=== PATIENT | male | born 1955 | race Caucasian/White ===

== ENCOUNTER 2017-08-18 09:25 | Day surgery (SDC) | payer MEDICAID, OTHER ==
[2017-08-18] MEDS ORDERED: NS 500 ML IV ONE (09:32)
[2017-08-18] MEDS ORDERED: ATROPINE SULFATE 1 MG/10 ML SYR IVP ONE (09:32)
[2017-08-18] MEDS ORDERED: fentaNYL 100 MCG/2 ML INJ IVP ONE (09:32)
[2017-08-18] MEDS ORDERED: MIDAZOLAM 2 MG/2 ML VIAL IVP ONE (09:32)
[2017-08-18] MEDS ORDERED: BENZOCAINE UNIT DOSE SPRAY HURRICAINE MM ONE (09:32)
--- NOTE | 2017-08-18 09:46 | CPEKG ---
Heart Rate: 117 RR Interval: 513 QRSD Interval: 108 QT Interval: 376 QTC Interval: 525 QRS [place]: 117 T Wave [place]: 30 EKG Severity - ABNORMAL ECG - EKG Impression: A-FLUTTER W/ PREDOM 2:1 AV BLOCK, A-RATE 258 EKG Impression: LEFT POSTERIOR FASCICULAR BLOCK EKG Impression: PROLONGED QT INTERVAL Electronically Signed By: China Raza 18-Aug-2017 16:59:00
[2017-08-18 10:07] LABS: INR 1.47 (0.83-1.16)
--- NOTE | 2017-08-18 10:48 | PDHPUP ---
History & Physical Update H&P update statement: This history and physical update is based on an assessment of the patient which was completed after admission or registration (within 24 hours), but prior to the surgery/procedure. H&P update: H&P reviewed & patient examined, no change in patient's condition since H&P completed
[2017-08-18] MEDS ORDERED: PROPOFOL/EMULSION 500 MG/50 ML BOTTLE IV ONE (10:50)
--- NOTE | 2017-08-18 11:06 | PDTEE1 ---
HEAVENLY Cardioversion Procedure Procedure: electrical cardioversion Indications: atrial fibrillation Consent: signed and in chart Anticoagulation: eliquis Procedural Details: Pads were placed in anterior-posterior position. HEAVENLY probe was advanced and standard images obtained. There is no evidence of left atrial or left atrial appendage thrombus. Synchronized cardioversion attempt #1: 150J Synchronized cardioversion attempt #2: 300J Results: normal sinus rhythm Conclusions: successful HEAVENLY cardioversion Conclusion Comment: The patient maintained NSR for approximately 1 minute then lapsed back to AFIB.
--- NOTE | 2017-08-18 11:07 | PDANEPAE ---
ANE History of Present Illness here for HEAVENLY/CV ANE Past Medical History - Cardiovascular History Hx Hypertension: No Hx Arrhythmias: Yes Hx Chest Pain: No Hx Coronary Artery / Peripheral Vascular Disease: No Hx CHF / Valvular Disease: No Hx Palpitations: No - Pulmonary History Hx COPD: Yes Hx Asthma/Reactive Airway Disease: No Hx Recent Upper Respiratory Infection: No Hx Oxygen in Use at Home: No Hx Sleep Apnea: Yes - Neurologic History Hx Cerebrovascular Accident: No Hx Seizures: No Hx Dementia: No - Endocrine History Hx Diabetes: No Obesity: moderate - Renal History Hx Renal Disorders: No ANE Review of Systems Review of systems is: negative Review of Systems: - Exercise capacity Exercise capacity: >=4 METS ANE Patient History - Allergies Allergies/Adverse Reactions: No Known Allergies Allergy (Unverified 08/18/17 09:32) - Home Medications Home medications: home medication list seen and reviewed Home Medications: Amiodarone HCl 200 mg PO BID 08/18/17 [Last Taken 08/18/17 07:30] Eliquis 5 mg PO BID 08/18/17 [Last Taken 08/18/17 07:30] Lipitor 10 mg (*) 10 mg PO DAILY 08/18/17 [Last Taken 08/18/17 07:30] Metoprolol Tartrate 25 mg PO BID 08/18/17 [Last Taken 08/18/17 07:30] Protonix 40mg (*) 40 mg PO DAILY 08/18/17 [Last Taken 08/18/17 07:30] Spiriva Inhaler (RX) 1 IH DAILY 08/18/17 [Last Taken 08/18/17 07:30] - NPO status NPO Status: no food or drink >8 hours - Anes Hx Anes Hx: no prior problems - Smoking Hx Smoking Status: Former smoker ANE Labs/Vital Signs - Labs Result Diagrams: 08/18/17 09:50 - Vital Signs Vital Signs: reviewed preoperatively; see RN documention for details Height: 185 cm Weight: 126.9 kg ANE Physical Exam - Airway Neck exam: FROM Mallampati Score: Class 1 - Pulmonary Pulmonary: no respiratory distress - Cardiovascular Cardiovascular: irregularly irregular - ASA Status ASA Status: III ANE Anesthesia Plan Anesthesia Plan: GA with mask
--- NOTE | 2017-08-18 11:08 | POSTANESTH ---
Post Anesthetic Evaluation Cardiovascular Status: Normal, Stable Respiratory Status: Normal, Stable Level of Consciousness/Mental Status: Can Participate in Eval Pain Control: Adequate, Prn Tx Ordered Nausea/Vomiting Control: Adequate, Prn Tx Ordered Complications Possibly Related to Anesthesia: None Noted
--- NOTE | 2017-08-18 11:20 | CPEKG ---
Heart Rate: 102 RR Interval: 588 QRSD Interval: 110 QT Interval: 376 QTC Interval: 490 QRS [place]: 116 T Wave [place]: 96 EKG Severity - ABNORMAL ECG - EKG Impression: ATRIAL FIBRILLATION EKG Impression: LEFT POSTERIOR FASCICULAR BLOCK Electronically Signed By: China Raza 18-Aug-2017 16:59:07
[2017-08-18] MEDS ORDERED: PERFLUTREN LIPID MICROSPHERES 1.1 MG/ML VIAL IV ONE (11:38)
--- NOTE | 2017-08-18 15:53 | ECHO ---
[email or web address] [address] [address] Main: [phone] Fax: Transesophageal Echocardiography Name: DARRYN MONTEIRO MR#: [id number] Study Date: 08/18/2017 Study Time: 10:46 AM Date of : 1955 Age: 62 year(s) Height: ( ) Weight: ( ) BSA: Gender: Male Examination: HEAVENLY Indication: Atrial Fibrillation Image Quality: Contrast: Requested by: Clarence Bishop Heart Rate: Rhythm: BP: / Procedure Staff Gas Appliance Mechanic: Yenifer Fenton AUGUSTUS Reading Physician: Clarence Bishop MD Requesting Provider: HEAVENLY Exam Details Conclusions: The patient was in atrial fibrillation at the time of the study. The left ventricle appears to be mildly dilated. The ejection fraction is severely reduced estimated at 25-30% with severe global left ventricular hypokinesis. There are no regional wall motion abnormalities. Severe biatrial enlargement is noted. The interatrial septum appears to be intact on color-flow imaging. Agitated saline contrast study was not performed. The right ventricle appears to be mildly dilated with mild hypokinesis. Valvular anatomy is normal. There is mild mitral and tricuspid regurgitation. No pericardial effusion is noted. Immediately following the procedure a cardioversion was performed. The patient maintained sinus rhythm following a 300 joule shock for about 1 min after which he lapsed back into atrial fibrillation. Measurements: Chambers Valvular Assessment AV/MV Valvular Assessment TV/PV Normal Normal Normal Name Value Range Name Value Range Name Value Range EF Range: 25--30 % Additional Measurements: Findings: The ejection fraction is estimated to be 25--30 %. Left Atrium: Spontaneous contrast seen in JJ and LA.. Patient: DARRYN MONTEIRO Study Date: 08/18/2017 Page 1 of 2 10:46 AM Mitral Valve: The mitral valve is normal in appearance. Mild mitral valve regurgitation is present. Aortic Valve: The aortic valve is tri-leaflet. Tricuspid Valve: The tricuspid valve appears normal. Mild tricuspid regurgitation is present. Exam Comments: Definity microspheres injected to better assess LV function.. l1n (No Signature Object) Patient: DARRYN MONTEIRO Study Date: 08/18/2017 Page 2 of 2 10:46 AM [id number]
== END 2017-08-18 12:49 | disposition home or self-care (01) ==
LOC: FCATH 09:25
PROVIDERS: ATTEND Internal Medicine Cardiovascular Disease
PROC: 5A2204Z Restoration of Cardiac Rhythm, Single (ICD-10-PCS; principal; 2017-08-18)
PROC: B245ZZ4 Ultrasonography of Left Heart, Transesophageal (ICD-10-PCS; principal; 2017-08-18)
DX: I48.91 Unspecified atrial fibrillation (principal); E78.5 Hyperlipidemia, unspecified; E66.9 Obesity, unspecified; Z68.37 Body mass index [BMI] 37.0-37.9, adult; G47.33 Obstructive sleep apnea (adult) (pediatric); Z79.2 Long term (current) use of antibiotics; Z87.891 Personal history of nicotine dependence
CPT/HCPCS: J2704; Q9957

== ENCOUNTER 2017-09-20 14:58 | Inpatient (IN) | payer MEDICAID, OTHER ==
--- NOTE | 2017-09-20 15:19 | CPEKG ---
Heart Rate: 37 RR Interval: 1622 QRSD Interval: 112 QT Interval: 644 QTC Interval: 506 QRS [place]: 113 T Wave [place]: 148 EKG Severity - ABNORMAL ECG - EKG Impression: JUNCTIONAL ESCAPE RHYTHM EKG Impression: LEFT POSTERIOR FASCICULAR BLOCK EKG Impression: MINIMAL ST DEPRESSION, LATERAL LEADS Electronically Signed By: Marcelo Meyer 22-Sep-2017 08:29:20
[2017-09-20 15:26] LABS: PLATELET COUNT 177 10^3/uL (150-400)
[2017-09-20] MEDS ORDERED: ASPIRIN 81 MG CHEWABLE TAB PO ONE (15:29)
[2017-09-20] MEDS ORDERED: NS 500 ML IV ONE (15:29)
--- NOTE | 2017-09-20 15:34 | EDPHY ---
H & P Time Seen by Provider: 09/20/17 15:19 HPI/ROS: CHIEF COMPLAINT: The near syncope, bradycardia HISTORY OF PRESENT ILLNESS: Patient is a 62-year-old male with a history of paroxysmal atrial fibrillation on Eliquis, metoprolol and amiodarone who presents emergency department with bradycardia and hypotension. The patient states that earlier today he had a near syncopal episode while walking in the [employer]. He also reports shortness of breath while walking up stairs. This is been going on for some time. He had an appointment with his drupal programmer today. This is routine checkup. When there he told the drupal programmer about his symptoms. EKG was performed at the drupal programmer office and he was noted to be bradycardic with a heart rate of 38. The drupal programmer stated that this was a junctional rhythm versus atrial fibrillation with slow ventricular response. Patient is unsure about the medications that he is taking. Apprentice Architect recommend the patient be admitted. At this time patient has no complaints. No chest pain or shortness of breath. He is not lightheaded or dizzy. REVIEW OF SYSTEMS: My complete review of systems is negative except as mentioned in the HPI. Past Medical/Surgical History: Includes atrial fibrillation, hypertension, high cholesterol Social History: The patient does not smoke. Smoking Status: Former smoker Physical Exam: Vitals noted. Normal pressure. Bradycardic. GENERAL: No acute distress, alert. HEENT: Eyes normal to inspection, normal pharynx, no signs of dehydration. NECK: No thyromegaly, no lymphadenopathy, supple. RESPIRATORY: Clear to auscultation bilaterally, no rales, rhonchi or wheezing. CVS: Bradycardia with regular rhythm, no rubs, murmurs, or gallops. ABDOMEN: Soft, nontender, nondistended, no organomegaly. BACK: Normal to inspection, no CVA tenderness. SKIN: Normal color, no rash, warm, dry. No pallor. EXTREMITIES: No pedal edema, no calf tenderness, no Homans sign or cords, no joint swelling. NEURO/PSYCH: Alert and oriented x3, normal mood and affect, normal motor sensory exam. No obvious cranial nerve deficit. Constitutional: Initial Vital Signs Temperature (C) 36.5 C 09/20/17 15:25 Heart Rate 38 L 09/20/17 15:25 Respiratory Rate 14 09/20/17 15:25 Blood Pressure 137/77 H 09/20/17 15:25 O2 Sat (%) 93 09/20/17 15:25 O2 Delivery Mode Room Air O2 (L/minute) 2 Allergies/Adverse Reactions: No Known Allergies Allergy (Verified 09/20/17 15:23) Home Medications: Medication Instructions Recorded Amiodarone HCl 200 mg PO BID 08/18/17 Lipitor 10 mg (*) 10 mg PO DAILY 08/18/17 Metoprolol Tartrate 25 mg PO BID 08/18/17 Protonix 40mg (*) 40 mg PO DAILY 08/18/17 Spiriva Inhaler (RX) 1 IH DAILY 08/18/17 Pradaxa 09/20/17 Medical Decision Making ED Course/Re-evaluation: In the emergency department I discussed possible etiologies with the patient. I answered all his questions. IV was placed. Laboratory studies were obtained. Patient was given normal saline 500 mL IV for hydration. This was due to his reported low blood pressure. Patient was given aspirin 324 mg orally. EKG was ordered. EKG: Junctional escape rhythm at 37. Normal axis. Left posterior fascicular block. Patient's CBC was normal. 15 50: I discussed case with the hospitalist service, Dr. Galvan. Patient will be transferred to the [facility] [facility]. The patient agrees. I discussed the plan and answered all his questions. EMTALA completed. Ambulance notitified for transfer. Consult requested by cardiology. Differential Diagnosis: My differential includes but is not limited to bradycardia, atrial fibrillation , junctional rhythm, medication overdose, ACS, acute TX, electrolyte abnormality - Data Points Laboratory Results: Laboratory Results 09/20/17 15:20 09/20/17 15:20 09/20/17 09/20/17 15:20 15:20 WBC 7.51 10^3/uL 10^3/uL (3.80-9.50) RBC 4.97 10^6/uL 10^6/uL (4.40-6.38) Hgb 14.9 g/dL g/dL (13.7-17.5) Hct 44.0 % % (40.0-51.0) MCV 88.5 fL fL (81.5-99.8) MCH 30.0 pg pg (27.9-34.1) MCHC 33.9 g/dL g/dL (32.4-36.7) RDW 13.5 % % (11.5-15.2) Plt Count 177 10^3/uL 10^3/uL (150-400) MPV 10.1 fL fL (8.7-11.7) Neut % (Auto) 72.0 % % (39.3-74.2) Lymph % (Auto) 18.9 % % (15.0-45.0) [place] % (Auto) 6.0 % % (4.5-13.0) Eos % (Auto) 1.6 % % (0.6-7.6) Baso % (Auto) 0.7 % % (0.3-1.7) Nucleat RBC Rel Count 0.0 % % (0.0-0.2) Absolute Neuts (auto) 5.41 10^3/uL 10^3/uL (1.70-6.50) Absolute Lymphs (auto) 1.42 10^3/uL 10^3/uL (1.00-3.00) Absolute Monos (auto) 0.45 10^3/uL 10^3/uL (0.30-0.80) Absolute Eos (auto) 0.12 10^3/uL 10^3/uL (0.03-0.40) Absolute Basos (auto) 0.05 10^3/uL 10^3/uL (0.02-0.10) Absolute Nucleated RBC 0.00 10^3/uL 10^3/uL (0-0.01) Immature Gran % 0.8 % % (0.0-1.1) Immature Gran # 0.06 10^3/uL 10^3/uL (0.00-0.10) Sodium 139 mEq/L mEq/L (135-145) Potassium 4.7 mEq/L mEq/L (3.3-5.0) Chloride 105 mEq/L mEq/L (97-110) Carbon Dioxide 26 mEq/l mEq/l (22-31) Anion Gap 8 mEq/L mEq/L (8-16) BUN 19 mg/dL mg/dL (7-23) Creatinine 1.2 mg/dL mg/dL (0.7-1.3) Estimated GFR > 60 Glucose 86 mg/dL mg/dL (70-100) Calcium 8.8 mg/dL mg/dL (8.5-10.4) Total Bilirubin 0.8 mg/dL mg/dL (0.1-1.4) AST 87 IU/L H IU/L (17-59) ALT 170 IU/L H IU/L (21-72) Alkaline Phosphatase 89 IU/L IU/L (38-126) Troponin I 0.019 ng/mL ng/mL (0.000-0.034) Total Protein 6.6 g/dL g/dL (6.3-8.2) Albumin 3.5 g/dL g/dL (3.5-5.0) Medications Given: Sodium Chloride (Ns) 500 mls @ 1,000 mls/hr IV EDNOW ONE PRN Reason: Protocol Stop: 09/20/17 15:58 Last Admin: 09/20/17 15:40 Dose: 500 mls Discontinued Medications Aspirin (Aspirin) 324 mg PO EDNOW ONE Stop: 09/20/17 15:30 Last Admin: 09/20/17 15:40 Dose: 324 mg Departure - Departure Disposition: [facility] Inpatient Acute Clinical Impression: Near syncope, Bradycardia Condition: Good Referrals: Sal Dean MD [Primary Care Provider] - As per Instructions
[2017-09-20] MEDS ORDERED: ACETAMINOPHEN 325 MG TAB PO PRN (15:53)
[2017-09-20] MEDS ORDERED: NS 1,000 ML IV SCH (16:00)
[2017-09-20 16:03] LABS: INR 1.34 (0.83-1.16); PROTIME(PATIENT) 16.4 SEC (12.0-15.0)
--- NOTE | 2017-09-20 18:57 | PDGENHP ---
History and Physical - Chief Complaint Acute near syncope - History of Present Illness Primary care provider: Dr. Pocne Primary retail department reset: Dr. Sal Dean HPI: 62-year-old male presents with acute near syncope characterized as sudden onset dizziness of 1-2 minute duration with associated shortness of breath. The symptoms occurred while the patient was very minimally exerting himself, and ambulating through the [employer]. Alleviated by rest and he experienced a 2nd episode of symptoms on the day of this presentation. He sought medical attention at [facility], reportedly had notable bradycardia and hypotension, and was referred to urgent care. He reports that over the past 1 month, he has been experiencing shortness of breath which is exacerbated by ambulating up stairs and he has been experiencing some chest heaviness while supine. He has undergone a sleep study and he believes that the results indicated he has obstructive sleep apnea. He otherwise denies any exertional chest pain and he denies any symptomatic atrial fibrillation. He has been taking all of his home medications which include anticoagulant, metoprolol, amiodarone, and reports that he has recently had a dose adjustment, but he is unclear which medication was adjusted. History Information - Allergies/Home Medication List Allergies/Adverse Reactions: No Known Allergies Allergy (Verified 09/20/17 15:23) Home Medications: Amiodarone HCl 200 mg PO BID 08/18/17 [Last Taken 08/18/17 07:30] Lipitor 10 mg (*) 10 mg PO DAILY 08/18/17 [Last Taken 08/18/17 07:30] Metoprolol Tartrate 25 mg PO BID 08/18/17 [Last Taken 08/18/17 07:30] Protonix 40mg (*) 40 mg PO DAILY 08/18/17 [Last Taken 08/18/17 07:30] Spiriva Inhaler (RX) 1 IH DAILY 08/18/17 [Last Taken 08/18/17 07:30] Pradaxa 09/20/17 [Last Taken Unknown] I have personally reviewed and updated: family history, medical history, social history, surgical history - Past Medical History atrial fibrillation (Persistent, currently on mayda blocking and antiarrhythmic therapy) Additional medical history: Suspected obstructive sleep apnea - Surgical History Reports: no pertinent surgical hx - Family History Additional family history: No recent sick family contacts - Social History Smoking Status: Former smoker Alcohol Use: Rarely Drug Use: None Additional social history: 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 Review of Systems Review of Systems: ROS: 10pt was reviewed & negative except for what was stated in HPI & below Respiratory: Reports: shortness of breath Neurological: Reports: other (Dizziness) Physical Exam Physical Exam: Temp Pulse Resp BP Pulse Ox 36.6 C 38 L 12 161/93 H 100 09/20/17 17:58 09/20/17 18:22 09/20/17 17:58 09/20/17 18:22 09/20/17 17:58 O2 (L/minute) 2 Constitutional: no apparent distress, appears nourished, not in pain Eyes: PERRL, anicteric sclera, EOMI Ears, Nose, Mouth, Throat: moist mucous membranes, hearing normal, ears appear normal, no oral mucosal ulcers Cardiovascular: bradycardia, No systolic murmur, No irregularly irregular, No tachycardia, No edema Respiratory: no respiratory distress, no rales or rhonchi, clear to auscultation Gastrointestinal: normoactive bowel sounds, soft, non-tender abdomen, no palpable masses Skin: warm, No abrasion, No rash Neurologic: AAOx3, sensation intact bilaterally, No weakness (Motor 5/5 bilateral lower extremities) Psychiatric: interacting appropriately, not anxious, not encephalopathic, thought process linear, other (Charismatic) Lab Data & Imaging Review 09/20/17 15:20 09/20/17 15:20 WBC 7.51 10^3/uL (3.80-9.50) 09/20/17 15:20 RBC 4.97 10^6/uL (4.40-6.38) 09/20/17 15:20 Hgb 14.9 g/dL (13.7-17.5) 09/20/17 15:20 Hct 44.0 % (40.0-51.0) 09/20/17 15:20 MCV 88.5 fL (81.5-99.8) 09/20/17 15:20 MCH 30.0 pg (27.9-34.1) 09/20/17 15:20 MCHC 33.9 g/dL (32.4-36.7) 09/20/17 15:20 RDW 13.5 % (11.5-15.2) 09/20/17 15:20 Plt Count 177 10^3/uL (150-400) 09/20/17 15:20 MPV 10.1 fL (8.7-11.7) 09/20/17 15:20 Neut % (Auto) 72.0 % (39.3-74.2) 09/20/17 15:20 Lymph % (Auto) 18.9 % (15.0-45.0) 09/20/17 15:20 [place] % (Auto) 6.0 % (4.5-13.0) 09/20/17 15:20 Eos % (Auto) 1.6 % (0.6-7.6) 09/20/17 15:20 Baso % (Auto) 0.7 % (0.3-1.7) 09/20/17 15:20 Nucleat RBC Rel Count 0.0 % (0.0-0.2) 09/20/17 15:20 Absolute Neuts (auto) 5.41 10^3/uL (1.70-6.50) 09/20/17 15:20 Absolute Lymphs (auto) 1.42 10^3/uL (1.00-3.00) 09/20/17 15:20 Absolute Monos (auto) 0.45 10^3/uL (0.30-0.80) 09/20/17 15:20 Absolute Eos (auto) 0.12 10^3/uL (0.03-0.40) 09/20/17 15:20 Absolute Basos (auto) 0.05 10^3/uL (0.02-0.10) 09/20/17 15:20 Absolute Nucleated RBC 0.00 10^3/uL (0-0.01) 09/20/17 15:20 Immature Gran % 0.8 % (0.0-1.1) 09/20/17 15:20 Immature Gran # 0.06 10^3/uL (0.00-0.10) 09/20/17 15:20 PT 16.4 SEC (12.0-15.0) H 09/20/17 Unknown INR 1.34 (0.83-1.16) H 09/20/17 Unknown APTT 44.2 SEC (23.0-38.0) H 09/20/17 Unknown Sodium 139 mEq/L (135-145) 09/20/17 15:20 Potassium 4.7 mEq/L (3.3-5.0) 09/20/17 15:20 Chloride 105 mEq/L (97-110) 09/20/17 15:20 Carbon Dioxide 26 mEq/l (22-31) 09/20/17 15:20 Anion Gap 8 mEq/L (8-16) 09/20/17 15:20 BUN 19 mg/dL (7-23) 09/20/17 15:20 Creatinine 1.2 mg/dL (0.7-1.3) 09/20/17 15:20 Estimated GFR > 60 09/20/17 15:20 Glucose 86 mg/dL (70-100) 09/20/17 15:20 Calcium 8.8 mg/dL (8.5-10.4) 09/20/17 15:20 Total Bilirubin 0.8 mg/dL (0.1-1.4) 09/20/17 15:20 AST 87 IU/L (17-59) H 09/20/17 15:20 ALT 170 IU/L (21-72) H 09/20/17 15:20 Alkaline Phosphatase 89 IU/L (38-126) 09/20/17 15:20 Troponin I 0.019 ng/mL (0.000-0.034) 09/20/17 15:20 Total Protein 6.6 g/dL (6.3-8.2) 09/20/17 15:20 Albumin 3.5 g/dL (3.5-5.0) 09/20/17 15:20 Visualized and Interpreted Chest x-ray results: Yes Chest X-Ray results: no infiltrate Visualized and Interpreted EKG results: Yes EKG additional interpertation: Junctional bradycardia with T-wave inversions in leads V4 through V6, left posterior fascicular block Assessment & Plan Assessment: 62-year-old male presenting with acute near syncope in the setting of symptomatic bradycardia and persistent atrial fibrillation Plan: 1. Bradycardia. Acute, new problem this provider, further workup indicated. Junctional, most likely secondary to mayda blocking agent plus antiarrhythmic -hold both medications, monitor rate and rhythm on telemetry -currently does not have any evidence of hypotension and does not require temporary pacer -although he was hypotensive at [facility], currently normotensive, continue on normal saline -discussed with Dr. Mindi Rob, he reports that he will consult with Cardiology and I have requested that they consult on this patient tomorrow a.m. To help determine whether the patient will require pacemaker -keep NPO overnight 2. Persistent atrial fibrillation. Resulting in systemic anticoagulation, mayda blocking agent, antiarrhythmic -currently holding metoprolol and amio, continue systemic anticoagulation once reconciled -obtain outside records from [facility] including most recent echo and stress test -reviewed outside records including 08/18/[address] Clarence Bishop recounting the patient underwent transesophageal echocardiogram with DC cardioversion, was in normal sinus rhythm for approximately 1 min, then converted back to atrial fibrillation, EKG at that time demonstrated AFib with left posterior fascicular block and a heart rate of 102 -the patient may require permanent pacemaker for sick sinus syndrome, depending on heart rate and rhythm overnight 3. Transaminitis. Most likely secondary to hepatic steatosis, defer to outpatient management and follow-up liver panel Diet. Regular, NPO after midnight prophylaxis. Currently on systemic anticoagulation Code. Full Disposition. Anticipated discharge is 09/21, pending stabilization of conditions outlined above, patient requires permanent pacemaker placement for unstable rhythm, he will need to be upgraded to inpatient admission status
[2017-09-21] MEDS: DABIGATRAN ETEXILATE MESYL 150 MG CAP PO SCH ×2 (00:40→10:09)
[2017-09-21] MEDS: ATORVASTATIN CALCIUM 10 MG TAB PO SCH (07:55)
[2017-09-21] MEDS: PANTOPRAZOLE SODIUM 40 MG TAB PO SCH (07:55)
[2017-09-21] MEDS ORDERED: PNEUMOCOCCAL 0.5ML VACCINE VIAL IM ONE (08:01)
--- NOTE | 2017-09-21 08:50 | CPEKG ---
Heart Rate: 38 RR Interval: 1579 P-R Interval: 192 QRSD Interval: 116 QT Interval: 672 QTC Interval: 535 P [place]: 19 QRS [place]: 100 T Wave [place]: 102 EKG Severity - ABNORMAL ECG - EKG Impression: SINUS BRADYCARDIA EKG Impression: NONSPECIFIC INTRAVENTRICULAR CONDUCTION DELAY Electronically Signed By: Bassam Golden 21-Sep-2017 11:12:47
[2017-09-21] MEDS: TIOTROPIUM INHALER 18 MCG/DOSE 5 DOSE/MDI IH SCH (08:59)
[2017-09-21] MEDS ORDERED: PROTONIX 40 MG PO SCH (09:00)
[2017-09-21] MEDS ORDERED: LIPITOR 10 MG PO SCH (09:00)
--- NOTE | 2017-09-21 10:45 | HOSPPROG ---
Hospitalist Progress Note Assessment/Plan: 62-year-old man with a history of AFib presents with near syncope. He was found to be bradycardic. # symptomatic bradycardia, appreciate Cardiology consult this is likely secondary to sick sinus syndrome * Pacemaker placement # atrial fibrillation on amiodarone and Pradaxa for anticoagulation. Last dose was last night. They plan on doing pacemaker this afternoon # COPD on Spiriva # GERD on Protonix HPI: 62-year-old male presents with acute near syncope characterized as sudden onset dizziness of 1-2 minute duration with associated shortness of breath. The symptoms occurred while the patient was very minimally exerting himself, and ambulating through the [employer]. Alleviated by rest and he experienced a 2nd episode of symptoms on the day of this presentation. He sought medical attention at [facility], reportedly had notable bradycardia and hypotension, and was referred to urgent care. He reports that over the past 1 month, he has been experiencing shortness of breath which is exacerbated by ambulating up stairs and he has been experiencing some chest heaviness while supine. He has undergone a sleep study and he believes that the results indicated he has obstructive sleep apnea. He otherwise denies any exertional chest pain and he denies any symptomatic atrial fibrillation. He has been taking all of his home medications which include anticoagulant, metoprolol, amiodarone, and reports that he has recently had a dose adjustment, but he is unclear which medication was adjusted. History Information - Allergies/Home Medication List Allergies/Adverse Reactions: No Known Allergies Allergy (Verified 09/20/17 15:23) Home Medications: Amiodarone HCl 200 mg PO BID 08/18/17 [Last Taken 08/18/17 07:30] Lipitor 10 mg (*) 10 mg PO DAILY 08/18/17 [Last Taken 08/18/17 07:30] Metoprolol Tartrate 25 mg PO BID 08/18/17 [Last Taken 08/18/17 07:30] Protonix 40mg (*) 40 mg PO DAILY 08/18/17 [Last Taken 08/18/17 07:30] Spiriva Inhaler (RX) 1 IH DAILY 08/18/17 [Last Taken 08/18/17 07:30] Pradaxa 09/20/17 [Last Taken Unknown] I have personally reviewed and updated: family history, medical history, social history, surgical history - Past Medical History atrial fibrillation (Persistent, currently on mayda blocking and antiarrhythmic therapy) Additional medical history: Suspected obstructive sleep apnea - Surgical History Subjective: Patient new to me and chart reviewed, discussed with Dr. Dai. Feeling good no further syncopal episodes Objective: Vital Signs Temp Pulse Resp BP Pulse Ox 36.6 C 38 L 18 155/79 H 94 09/21/17 03:24 09/21/17 03:24 09/21/17 09:03 09/21/17 03:24 09/21/17 08:03 Laboratory Results 09/21/17 03:16 09/20/17 09/21/17 09/22/17 05:59 05:59 05:59 Intake Total 1490 Output Total 520 Balance 970 PT 16.4 SEC (12.0-15.0) H 09/20/17 Unknown INR 1.34 (0.83-1.16) H 09/20/17 Unknown - Physical Exam Constitutional: no apparent distress, not in pain, obese Eyes: PERRL, anicteric sclera, EOMI Ears, Nose, Mouth, Throat: moist mucous membranes, hearing normal Cardiovascular: regular rate and rhythym Respiratory: no respiratory distress, no rales or rhonchi Gastrointestinal: normoactive bowel sounds, soft, non-tender abdomen Genitourinary: no bladder fullness Skin: normal color Neurologic: AAOx3 Psychiatric: interacting appropriately, not anxious ICD10 Worksheet Patient Problems: Problems Problem Status Onset Near syncope Acute Bradycardia Acute
--- NOTE | 2017-09-21 11:49 | GCON ---
[f rep st] CONSULTATION HISTORY: The patient is admitted to the hospital with a low heart rate. Patient has been in the hospital since last night. He saw his retort kiln burner, Dr. Dean, yesterday and Dr. Dean brought him to the emergency room [facility] se he had a junctional escape rhythm in the 37, 35, 40 range. The patient was lightheaded and dizzy. He had multiple spells of being very lightheaded in the last several days. Sometimes, when he is s itting down and stands up, that when notices the lightheadedness the most. He has also been lethargi c. He has not had the energy he normally has. He has had no syncope. He has not had near syncope. He has had no visual or cranial nerve changes. He has not had any trauma to the head, neck, or chest. He has not had headache, stiff neck, sore throat photophobia. He has not had fever, chills, or cough. He has no rash, arthralgias or hot swollen joints. He has no chest pain, chest tightness, jaw pain, arm pain. He has no pleuritic chest pain. He has no cough, orthopnea, PND or dyspnea on exertion. He has no hemoptysis. He has not had dysuria or frequency. He has no history of rheumatic disease, claudication or cerebrovascular disease. No history of deep v enous thrombosis or pulmonary embolic disease in the past. He has not been a smoker. He was having trouble walking about a month ago up stairs and noted shortness of breath then. He was found to have atrial fibrillation with a rapid ventricular response. He was put on some medications for that and one time back then he had an episode where he felt like an elephant was sitting on his c hest. That was when his heart rate was going very fast and he was short of breath. That has not rec urred since that time. He was seen by Dr. Wright, his primary care doctor, then referred to Cardiology and was seen and ca rdioverted by Dr. Miguel Bishop and has had followup with Dr. Dean. He has no other new complaints exc ept this lightheadedness, this feeling woozy when he changes position and the lethargy that he has velarde d recently. His medicine compliance has not been the best. He has stopped taking his Eliquis on multiple occasio ns it sounds like. He has stopped taking recently the beta blockers and the amiodarone. I talked to Dr. Dean who has been decreasing his medications and the patient said his doses have been getting lower and lower. CARDIAC RISK FACTORS: Positive for diabetes mellitus, for hyperlipidemia, for obesity. Cardiac risk factors are negative for hypertension, smoking, hyperuricemia, family history of prematu re coronary disease or any known coronary artery disease. REVIEW OF SYSTEMS: A 10-point review of systems negative except as noted in the chart and the record that is already attached. MEDICATIONS: Have been atorvastatin, dabigatran, Protonix, Spiriva, aspirin. ALLERGIES: None. SOCIAL HISTORY: He was born in [place], [place], went to high school there. He came out to [facility] in 1979 because his brother moved here and he moved here at that time and stayed ever since. 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 He also covers [place] . 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 He lives by himself. He has no children a nd does nothing for exercise. He does do a 10 minute walk at the end of his day to make sure all the garage doors are close to where the [employer] [address] are and he has no symptoms doing that. He does not smoke. He does not drink significant amounts of alcohol. FAMILY HISTORY: No family history of premature coronary artery disease. No history of unexplained s udden at a young age. PHYSICAL EXAMINATION: VITAL SIGNS: Blood pressure is 135/79, his heart rate is 37, but he feels bet ter now than he did yesterday. He is afebrile. HEENT: Pupils equal and reactive. Mucous membranes a nd mouth moist. NECK: Supple. CARDIOVASCULAR: S1, S2. Very slow heart rate. No S3, S4. No rubs . Soft systolic murmur at left sternal border. LUNGS: Reveal rhonchi bilaterally. No rales, wheezi ng, or dullness. ABDOMEN: Soft, nontender, without masses. He is obese. EXTREMITIES: No edema in flammation or ulceration. NEUROLOGIC: Cranial nerves 2-12 grossly normal. Motor and sensory intact . PSYCHIATRIC: No obvious anxiety or depression. SKIN: Age-related changes. LAB DATA: White count 7.5, hematocrit 44, platelets 177. Sodium 142, potassium 4.6, chloride 108, C O2 27, BUN 18, creatinine 1.1, ALT is 130, AST is 51, alkaline phos is normal. TSH is 3.9. EKG is junctional rhythm. Chest x-ray shows nothing acute ASSESSMENT AND PLAN: 1. Sick sinus syndrome. 2. Atrial fibrillation with rapid ventricular response. 3. Dizziness. 4. Diabetes mellitus. 5. Hyperlipidemia. The patient currently has sick sinus syndrome that he is symptomatic from. To begin at the beginning , about 5 weeks ago he was found to have atrial fibrillation with a rapid ventricular response, came to the [facility] and had a cardioversion and he was cardioverted twice. He was cardio verted successfully to sinus rhythm on the second attempt, but within a minute or so, went back into atrial fibrillation, he was put on amiodarone, full anticoagulation and then metoprolol because his r ate was high. Over the course of the last 5 weeks, he has been evaluated carefully. He had a nuclea r stress test done as an outpatient on 09/17/2016. The nuclear images were negative. He went 8 chacha edwin and 15 seconds on the Joseph protocol. He had [address]-segment depression. His ejec tion fraction was normal on the nuclear imaging study. The patient had no chest pain during that pro cedure. I have not been able to find a regular echocardiographic study on the patient, so we will order one o f those. The transesophageal echocardiogram that was done did not show any significant abnormalities . The patient now has not been taking his beta unruly and, over the last 3 weeks, Dr. Dean tells me he has been decreasing his beta unruly and decreasing his amiodarone dose because the patient was velarde ving slow heart rates. The patient now, and he tells me he has for 3 days not had beta blockers, sti ll comes in with a rhythm of 37, 36, 38 with junctional escape and with symptoms. He feels lighthead ed. He can't do his work. He has felt very lightheaded on several occasions. This would meet the criteria for symptomatic sick sinus syndrome. He has not been overdosed on block ing agents. He will need blocking agents because of his history of atrial fibrillation and I will di scuss this case with Dr. Vuong of the pacemaker service and recommend at this point that the patient proceed to pacemaker therapy. Patient is willing to do this. I have reviewed with him the risks and the options and I think it is a very good approach for him. We will plan to that if he has not had any further anticoagulation today and, from what he tells me a nd what the nursing staff says, he has not had any further anticoagulation today. I will be talking to Dr. Vuong. If we are concerned about anticoagulation and the patient needs to wait another day for the pacemaker , that will be how it flows. Once he has a pacemaker that is functioning, I think we can put him back on metoprolol at a low dose and see, over time, how he does. I have discussed amiodarone with the patient and with Dr. Dean and Dr. Dean and I both agree that he is not a good candidate for long-term amiodarone therapy. He is having a very hard time with com pliance. He is taking too much medicine sometimes and then not enough and now he isn't taking any, b ut he is still having this rhythm. So, we will switch him to a rate control approach for now until he is at least had a documented month of no loss of anticoagulation. At that point in time, Dr. Dean may decide to try further with ano ther attempt at cardioversion. The patient definitely tells me he has been missing his anticoagulation medications. He does not have a good understanding of this and I have gone over this with he and the nurse and the nurse and I both will try to keep reinforcing how important anticoagulation is. The patient has been seen by the Sleep Study service to evaluate him for possible sleep apnea issues that could be contributing to his atrial arrhythmias. He has had a consultation and he is lined up f or further evaluation in that regard. His thyroid function tests have been normal. He needs to lose weight and he has significant cardiac risk factors and we talked about prevention tr mendez to get him going with exercise. All his questions have been answered. I have discussed his case with the hospitalist and the nursing staff. /[id number]/MODL
[2017-09-21] MEDS ORDERED: NS 1,000 ML IV ONE (13:46)
[2017-09-21] MEDS ORDERED: BACITRACIN IRRIGATION/NS 50,000 UNITS/1,000 ML BTL IRR ONE (13:46)
[2017-09-21] MEDS ORDERED: DIAZEPAM 5 MG TAB PO ONE ×2 (14:17→15:23)
[2017-09-21] MEDS ORDERED: TEMAZEPAM 15 MG CAP PO PRN (14:17)
[2017-09-21] MEDS ORDERED: NITROGLYCERIN 0.4 MG BTL SL PRN (14:17)
[2017-09-21] MEDS ORDERED: diphenhydrAMINE 25 MG CAP PO ONE ×2 (14:17→15:23)
[2017-09-21] MEDS ORDERED: FAMOTIDINE 20 MG TAB PO ONE (14:17)
--- NOTE | 2017-09-21 14:26 | PDPROPOC ---
Sedation Plan of Care Sedation Plan of Care: vital signs stable, mental status noted, patient educated of risks, benefits, alternatives, patient can tolerate sedation ASA Classification: ASA 3 Planned drugs: fentanyl, midazolam Mallampati Score: Class 3 Mallampati Reference Image: Patient passed 3-3-2 rule?: No
--- NOTE | 2017-09-21 14:27 | PDHPUP ---
History & Physical Update H&P update statement: This history and physical update is based on an assessment of the patient which was completed after admission or registration (within 24 hours), but prior to the surgery/procedure. H&P update: H&P reviewed & patient examined (patient has intermittent angina at rest and CCS Class IV angina and NYHA class III sob), no change in patient's condition since H&P completed
[2017-09-21] MEDS ORDERED: LIDOCAINE 1% 300 MG/30 ML SDV ONE ×2 (15:16→15:26)
[2017-09-21] MEDS ORDERED: VERAPAMIL 5 MG/2 ML VIAL ONE (15:17)
[2017-09-21] MEDS ORDERED: fentaNYL 100 MCG/2 ML INJ ONE (15:17)
[2017-09-21] MEDS ORDERED: MIDAZOLAM 2 MG/2 ML VIAL ONE ×3 (15:17→15:26)
[2017-09-21] MEDS ORDERED: HEPARIN 10,000 UNIT/10 ML MDV (1,000 UNIT/ML) ONE (15:17)
[2017-09-21] MEDS ORDERED: IOPAMIDOL (ISOVUE-370) 150 ML BTL IV ONE (15:17)
[2017-09-21] MEDS ORDERED: ceFAZolin 2 GM/SWFI 2 GM/20 ML SYR IVP ONE (15:23)
[2017-09-21] MEDS ORDERED: IOPAMIDOL (ISOVUE-300) 50 ML VIAL ONE (15:25)
[2017-09-21] MEDS ORDERED: LIDO/EPI 1% **for epidural** 30 ML SDV ONE (15:26)
[2017-09-21] MEDS ORDERED: BUPIVACAINE 0.5% 30 ML SDV ONE (15:26)
--- NOTE | 2017-09-21 16:09 | PDDXCAT ---
Diagnostic Cath Note - . Date: 09/21/17 Shoe Caser: Carolann (CCC Class IV angina) - Procedure Access: left wrist Procedure: left heart catheterization, coronary angiography, left ventriculogram - Materials Left Heart Cath size: 5F Left Heart Cath materials: standard multipack (JL4, JR4, pigtail) - Findings-Left Heart Catheterization LM: The LM is 5mm in size. It trifurcates into an LAD, Ramus, and Circumflex system. LAD: LAD is 3 mm in size. It has a 2mm major diagonal. The LAD is a relatively small vessel after the diagonal takeoff. LCX: The LCX is 2 mm in size. VERONIKA III flow. No flow limiting obstruction. RCA: The RCA is dominant. It is 3.5 mm in size. VERONIKA III flow, but sluggish flow secondary to bradycardia. Ramus: The ramus intermedius is 2.5 mm in size. It is free of flow limiting obstruction. EDP: LVEDP 23 mmHg. LVEF: EF of 60%. No segmental wall motion abnormalities. Wall motion: On the LV gram there is normal LV systolic function. The EF is 60% . There are no resting segmental wall motion abnormalities. The visualized portion of the thoracic aortic valce reveals three sinuses of valsalva most consistent with a trileaflet valve. There is no gradient on pullback across the aortic valve. There is no evidence of ana dissection or aneurysm formation. Complications: NONE. Estimated blood loss: <50ml Closure method: TR Band Assessment: The patient has [place] vessel coronary disease with no evidence of obstruction, thrombus, or dissection. The RCA is dominant. Plan: The patient has non-flow limiting coronary disease that should be treated medically to achieve a non-HDL Cholesterol of less than 100 mg/dL and anti platelet therapy with ASA is also recommended specifically a dose of 162 mg per day. His BP also needs to be controlled for a goal systolic pressure of less than 130 mmHg. The patient is having junctional escape rhythm and bradycardia. He will proceed to have a pacemaker implanted. There is no evidence of flow limiting obstruction. Intervention: NONE. Patient Problems: Problems Problem Status Onset Bradycardia Acute Near syncope Acute
--- NOTE | 2017-09-21 16:46 | PDMN ---
Medical Necessity Medical necessity: Change to IP, as of 09/21/17, per MD; los >2 mn for ongoing management of symptomatic bradycardia likely secondary to sick sinus syndrome; admit for further monitoring, Cardiology consult & pacemaker placement; hx AFIB & COPD; per progress note & order 09/21/17
--- NOTE | 2017-09-21 16:50 | EPPROC ---
Electrophysiology Procedure Note: PROCEDURE: MRI conditional dual-chamber pacemaker insertion. DATE OF PROCEDURE: 09/21/2017. DEVICE: Implanted is an Edora 8 GEOVANNY [id number], serial # [id number]. MRI conditional device. LEADS: The atrial lead is a Solia S 53, serial # [id number]. The ventricular lead is a Solia S 60, serial # [id number]. COMPLICATIONS: None PAYROLL MANAGER: Reilly Vuong MD INDICATION AND APPROPRIATE USE CRITERIA: The patient was having junctional escape rhythm with bradycardia. Symptomatic SSS. PROCEDURE IN DETAIL: After informed consent was obtained and n.p.o. status was confirmed, the region of the left subclavicular fossa was cleaned, prepped and draped in a sterile fashion. Approximately 30 mL of 1% lidocaine was utilized for local anesthesia. The skin was sharply incised with a #10 blade. Electrocautery and local pressure were used for hemostasis. Sharp and blunt dissection was used to form a pacemaker pocket overlying the pectoralis major fascia. An 18-gauge Cook needle was used to gain access to the left subclavian vein x 2. J wires were advanced into the inferior vena cava. A 6-F peel-away sheath was advanced over the lateral wire. Wire and stylet were removed. Ventricular lead was manipulated with care into the RV apex under direct fluoroscopic guidance and screwed into place. Threshold was tested and found to be 0.8 V at 0.4 ms width. R-wave amplitude was measured at 8.0 mV. Lead impedance was 604 Ohms. The lead was sutured in place with #0 Ethibond. The medial wire was used to place a second peel-away sheath wire and dilator was removed and a second pacer lead was manipulated with care into the right atrial appendage and screwed into place. The threshold was 0.8 V at 0.4 ms width. P-wave amplitude was 4.4 mV, lead impedance was 507 Ohms. The peel away sheath was removed and the leads were sutured in place with a #0 Ethibond. The pocket was thoroughly flushed and checked for bleeding. Hemostasis was established. The antibiotic soaked gauze was removed from the pocket. The atrial lead serial number was checked and placed in the upper pole lead housing of the pulse generator and set screw firmly applied. The procedure was repeated for the RV lead in the lower pole lead housing. The device was placed in the pocket and sutured in place with #0 Ethibond. The skin was closed with a 3- layered 3-0 Vicryl, 2-0 Vicryl and 4-0 Monocryl repair with excellent wound edge opposition and hemostasis documented. The patient returned to the post cath recovery unit in good and stable condition where a stat postoperative chest x-ray and EKG will be obtained. FINAL IMPRESSION: Successful dual-chamber pacemaker insertion without immediate complication. Patient Problems: Problems Problem Status Onset Bradycardia Acute Near syncope Acute
--- NOTE | 2017-09-21 17:15 | ASMTCMCOM ---
CM Note CM Note Notes: 09/21/2017 Case Management Note Met pt during multi disciplinary rounds this morning. Pt admitted from [facility] with bradycardia and near syncope. There are no case management d/c needs identified d/t pt age, activity levels prior to admission and family supports. There are no PT evals ordered at this time. Case Management d/c poc: anticipating independent with follow up as directed. Case Management available if needs change. Date Signed: 09/21/2017 01:33 PM Electronically Signed By:Alysha Jamison RN
[2017-09-21] MEDS ORDERED: ATROPINE SULFATE 1 MG/10 ML SYR IVP PRN (17:47)
[2017-09-21] MEDS ORDERED: ONDANSETRON 4 MG/2 ML VIAL IVP PRN (17:47)
--- NOTE | 2017-09-21 18:32 | CPEKG ---
Heart Rate: 60 RR Interval: 1000 P-R Interval: 196 QRSD Interval: 120 QT Interval: 512 QTC Interval: 512 QRS [place]: 120 T Wave [place]: 51 EKG Severity - ABNORMAL ECG - EKG Impression: LEFT POSTERIOR FASCICULAR BLOCK EKG Impression: Atrial paced, V-sensed Electronically Signed By: Bassam Golden 22-Sep-2017 07:00:52
[2017-09-22 04:51] LABS: PLATELET COUNT 147 10^3/uL (150-400)
--- NOTE | 2017-09-22 08:57 | CPEKG ---
Heart Rate: 61 RR Interval: 984 P-R Interval: 184 QRSD Interval: 114 QT Interval: 480 QTC Interval: 484 QRS [place]: 119 T Wave [place]: 71 EKG Severity - ABNORMAL ECG - EKG Impression: ATRIAL-PACED RHYTHM EKG Impression: NONSPECIFIC INTRAVENTRICULAR CONDUCTION DELAY Electronically Signed By: Bassam Golden 23-Sep-2017 08:28:35
[2017-09-22] MEDS: ATORVASTATIN CALCIUM 10 MG TAB PO SCH (09:11)
[2017-09-22] MEDS: PANTOPRAZOLE SODIUM 40 MG TAB PO SCH (09:11)
[2017-09-22] MEDS: TIOTROPIUM INHALER 18 MCG/DOSE 5 DOSE/MDI IH SCH (09:12)
[2017-09-22] MEDS ORDERED: METOPROLOL TARTRATE 50 MG TAB PO SCH (09:45)
[2017-09-22 10:55] VITALS: BP 142/82
--- NOTE | 2017-09-22 13:11 | PDCARPN ---
Cardiology Progress Note Chief Complaint: SSS s/p pacemaker Assessment/Plan: Assessment: Mendel is a 62 y/o M with a history of HTN, DM, HLP, and PAF who presented to our office with SSS and junction escape rhythm. He was complaining of exertional MA and fatigue. He was admitted and underwent a angiogram which showed mild CAD without obstruction. Biotronik DDDR device was then placed. It is unclear what medications he was taking prior to his admission because he confuses them at home. Plan: 1. SSS/junction escape rhythm- s/p Biotronik DDDR pacer 2. CAD- without obstruction by angiogram. continue Aspirin and Lipitor 3. HLP- on Lipitor LDL is at goal. 4. PAF-Resume Amiodarone now and Pradaxa on Sat. CHADS Vasc of 2. Resume Metoprolol for rate control. 5. HTN-Metoprolol resumed today. 1 week pacer interrogation and wound check scheduled. 09/22/17 13:16 09/22/17 13:29 Subjective: Pt denies any CP or SOB. Reviewed/Discussed With: hospitalist Objective: Vital Signs (8 Hrs) Temp Pulse Resp BP Pulse Ox 09/22/17 10:54 36.8 C 63 14 142/82 H 91 L 09/22/17 09:00 162/98 H 09/22/17 08:39 36.7 C 63 15 169/99 H 93 09/22/17 06:50 157/94 H Intake/Output (24 Hrs) 09/21/17 09/22/17 09/23/17 05:59 05:59 05:59 Intake Total 1490 582 450 Output Total 520 1100 Balance 970 -518 450 Intake: Oral (ml) 300 450 IV Infused (ml) 1490 282 Ns 1,000 ml @ 150 mls/hr 990 282 IV CONT SUSAN Rx#: [id number] Output: Urine (ml) 520 1100 Urinal 520 1100 Other: Weight 126.5 kg Intake Quantity Yes Yes Sufficient Number of Voids Urinal 1 Number of Stools Urinal 1 Result Diagrams: 09/22/17 03:30 09/22/17 03:30 - Physical Exam Constitutional: WDWN Ears, Nose, Mouth, Throat: moist mucous membranes Cardiovascular: regular rate and rhythm, other (pacer site is clean intact without infection) Respiratory: clear to auscultate bilat, no crackles, no wheezes Skin: no edema Neurologic: AAOx3 ICD10 Worksheet Patient Problems: Problems Problem Status Onset Bradycardia Acute Near syncope Acute
[2017-09-22] MEDS ORDERED: AMIODARONE HCL 200 MG TAB PO SCH (13:45)
--- NOTE | 2017-09-22 17:58 | PDDCSUM ---
Discharge Summary Discharge Summary: DISCHARGE SUMMARY FOLLOW-UP ITEMS: Outpatient pacemaker check scheduled prior to discharge DATE OF ADMISSION: 09/20/2017 DATE OF DISCHARGE: 09/22/2017 DISCHARGE DIAGNOSES: 1. Persistent atrial fibrillation and Sick sinus syndrome with symptomatic bradycardia 2. COPD CONSULTATIONS: Cardiology PROCEDURES / IMAGING: Permanent pacemaker placement on 09/21 CHIEF COMPLAINT: Acute near syncope SUBJECTIVE: Patient is feeling well at time discharge, no pain PHYSICAL EXAM ON DISCHARGE: Systolic blood pressure 120-170, heart rate 60 70, afebrile overnight, alert awake oriented x3, no tenderness around the pacemaker site, heart rhythm is regular with no murmurs rubs or gallops LABS ON DISCHARGE: LDL 59, creatinine 1.0 HOSPITAL COURSE BY PROBLEM: The patient presented with symptomatic bradycardia resulting in near syncope, found to be in a junctional escape rhythm on EKG, with indication for permanent pace maker placement secondary to sick sinus syndrome and known persistent atrial fibrillation with recently failed DC cardioversion. The patient was monitored overnight on 09/20 to gauge whether his heart rate and rhythm would improve after holding his home dosages of amiodarone and metoprolol, but his junctional bradycardia continued and a pacemaker was placed on 09/21. After pacemaker placement, the patient's atrial fibrillation was suppressed with ongoing use of metoprolol and home dose of amiodarone. It was recommended by Dr. Vuong that the patient reinitiate his home dosage of Pradaxa on 09/25 to prevent postprocedural bleeding. At discharge, he was asymptomatic. DISCHARGE MEDICATIONS: Please see official discharge medication reconciliation sheet in chart , restart all home medications without any discontinuations, but hold restarting Pradaxa until 09/25 a.m.. DISCHARGE INSTRUCTIONS: Please follow up for permanent pacemaker device check and outpatient follow-up with primary cut off saw grader.
== END 2017-09-22 18:19 | disposition home or self-care (01) | DRG 171 ==
LOC: CED 14:58 → INTOOBSV 15:50 → CEDHOLD 15:50 → OBSVTOIN 15:55 → F2W 17:49
PROVIDERS: ADMIT Internal Medicine; ATTEND Internal Medicine
DX: I48.1 Persistent atrial fibrillation (principal); I49.5 Sick sinus syndrome; J44.9 Chronic obstructive pulmonary disease, unspecified; I10 Essential (primary) hypertension; E78.5 Hyperlipidemia, unspecified; E66.9 Obesity, unspecified; Z79.01 Long term (current) use of anticoagulants; Z23 Encounter for immunization
CPT/HCPCS: 71045-PO; 80053-PO; 84484-PO; 85025-PO; 85610-PO; 85730-PO; 97161-GP; 97165-GO; C1785; C1898; G0009; G0378; J0690; J1644; J2250; J3010; Q9967

== ENCOUNTER → 2018-03-01 | Outpatient (CLI) | payer MEDICAID | LOC: CIMAGING 15:06 | PROVIDERS: ATTEND Internal Medicine Cardiovascular Disease | DX: R06.02 Shortness of breath (principal); E78.5 Hyperlipidemia, unspecified; I48.91 Unspecified atrial fibrillation; I49.5 Sick sinus syndrome | CPT/HCPCS: 36415-PO; 71046-PO ==

== ENCOUNTER → 2018-10-25 | Outpatient (CLI) | payer OTHER | LOC: FIMAGING 09:30 ==